=== PATIENT | male | born 1955 | race Two or more races ===

== ENCOUNTER 2024-01-23 22:03 | Inpatient (IN) | payer MEDICARE, OTHER ==
[~2024-01-23] VITALS: Ht 162.6 cm; Wt 79.4 kg
[2024-01-23 23:03] LABS: Basophils # (auto) 0.1 10 ^3/uL (0-0.2); Basophils % (auto) 1.4 % (0.0-2.0); Eosinophils # (auto) 0.3 10 ^3/uL (0-0.8); Eosinophils % (auto) 3.5 % (0.0-7.0); Hematocrit 42.6 % (41.0-53.0); Hemoglobin 14.1 g/dL (13.5-17.5); Lymphocytes # (auto) 2.8 10 ^3/uL (0.4-5.4); Lymphocytes % (auto) 30.1 % (10.0-50.0); Mean Corpuscular Hemoglobin 30.2 pg (28.0-32.0); Mean Corpuscular Hgb Conc. 33.2 g/dL (32.0-36.0); Mean Corpuscular Volume 90.9 fL (80.0-100.0); Monocytes # (auto) 0.7 10 ^3/uL (0-1.3); Monocytes % (auto) 7.5 % (0.0-12.0); Neutrophils # (auto) 5.3 10 ^3/uL (1.6-8.6); Neutrophils % (auto) 57.5 % (37.0-80.0); Red Blood Cells 4.68 10^6/uL (4.5-5.90); Red Cell Distribution Width 13.7 % (11.8-14.3); White Blood Cell 9.3 10^3/uL (4.4-10.8)
[2024-01-23] MEDS: methylPREDNISolone SOD SUCC 125 MG/2 ML VL IV ONE (23:15)
[2024-01-23] MEDS: IPRATROPIUM BROM 0.5 MG/2.5ML INH SOL NEB ONE (23:18)
[2024-01-23] MEDS: ALBUTEROL SULF 2.5 MG/0.5ML(0.5%) NEB SOLN NEB ONE (23:18)
[2024-01-23 23:19] LABS: Alanine Aminotransferase 17 U/L (7-40); Albumin 4.4 g/dL (3.2-4.8); Alkaline Phosphatase 88 U/L (46-116); Anion Gap 7 (5-15); Aspartate Aminotransferase 26 U/L (13-40); BUN/Creatinine Ratio 8.9 (10.0-20.0); Bilirubin, Total 0.3 mg/dL (0.2-1.0); Blood Urea Nitrogen 8 mg/dL (9-23); Calcium 9.8 mg/dL (8.7-10.4); Carbon Dioxide 30 mmol/L (20-30); Chloride 106 mmol/L (98-107); Glucose 110 mg/dL (74-106); Potassium 4.3 mmol/L (3.5-5.1); Sodium 143 mmol/L (136-145); Total Protein 6.9 g/dL (5.7-8.2)
[2024-01-24] VITALS (17 sets, daily range): BP systolic 114–152; BP diastolic 70–87; PULSE 76–110; RESP 16–18; TEMP 97.6–98.6; O2SAT 92–99
[2024-01-24 00:06] LABS: Base Excess 1.6 mmol/L (-2.0-2.0)
[2024-01-24] MEDS: IPRATROPIUM BROM 0.5 MG/2.5ML INH SOL NEB ONE (00:14)
[2024-01-24] MEDS: ALBUTEROL SULF 2.5 MG/0.5ML(0.5%) NEB SOLN NEB ONE (00:14)
[2024-01-24] MEDS ORDERED: ONDANSETRON HCL 4 MG/2 ML VIAL IV PRN (03:15)
[2024-01-24] MEDS ORDERED: NITROGLYCERIN 0.4 MG SL TAB SL PRN ×2 (03:15→04:15)
[2024-01-24] MEDS ORDERED: MORPHINE SULFATE INJ 2 MG/ml SYRG IV PRN ×2 (03:15→04:15)
[2024-01-24] MEDS ORDERED: TEMAZEPAM 15 MG CAP PO PRN (03:15)
[2024-01-24] MEDS ORDERED: ACETAMINOPHEN 325 MG TAB PO PRN (03:15)
[2024-01-24] MEDS ORDERED: IPRATROPIUM BROM 0.5 MG/2.5ML INH SOL NEB PRN (03:15)
[2024-01-24] MEDS: methylPREDNISolone SOD SUCC 40 MG/ML VL IV SCH (12:28)
[2024-01-24] MEDS ORDERED: NITR0.4S29 SL (12:53)
[2024-01-24] MEDS ORDERED: AZIT-43 PO (12:53)
[2024-01-24] MEDS ORDERED: MELA3TAB27 PO (12:53)
[2024-01-24] MEDS ORDERED: HYDR-4798 PO (12:53)
[2024-01-24] MEDS ORDERED: ATOR40TA52 PO (12:53)
[2024-01-24] MEDS ORDERED: CHOL20007 PO (12:53)
[2024-01-24] MEDS ORDERED: PANT40T PO (12:53)
[2024-01-24] MEDS ORDERED: AMIT-118 PO (12:53)
[2024-01-24] MEDS ORDERED: CARV6.2551 PO (12:53)
[2024-01-24] MEDS: ALBUTEROL SULF 2.5 MG/0.5ML(0.5%) NEB SOLN NEB PRN (15:52)
[2024-01-24] MEDS: AZITHROMYCIN 250 MG TAB PO ONE (17:10)
[2024-01-24] MEDS: PANTOPRAZOLE 40 MG TAB PO ONE (17:10)
[2024-01-24] MEDS: cefTRIAXone 1GM/50ML D5W 50 ML IV ONE (17:28)
[2024-01-24] MEDS: HYDROcodone-ACET 10/325MG TAB PO PRN (17:41)
[2024-01-24] MEDS: IPRATROPIUM BROM 0.5 MG/2.5ML INH SOL NEB SCH (19:09)
[2024-01-24] MEDS: ALBUTEROL SULF 2.5 MG/0.5ML(0.5%) NEB SOLN NEB SCH (19:10)
[2024-01-24] MEDS: AMITRIPTYLINE HCL 25 MG TAB PO SCH (22:09)
[2024-01-24] MEDS: ATORVASTATIN 20 MG TAB PO SCH (22:10)
[2024-01-25] VITALS (15 sets, daily range): BP systolic 101–146; BP diastolic 68–81; PULSE 84–109; RESP 14–19; TEMP 97.7–98.3; O2SAT 91–99
[2024-01-25] MEDS: HYDROcodone-ACET 10/325MG TAB PO PRN (01:34)
[2024-01-25] MEDS: PANTOPRAZOLE 40 MG TAB PO SCH (05:51)
[2024-01-25 06:23] LABS: Urine Bacteria None Seen /hpf (None Seen)
[2024-01-25 06:49] LABS: Urine Blood Negative /uL (Negative); Urine Clarity Clear (Clear); Urine Color Yellow (Yellow); Urine Protein, UAD Negative (Negative); Urine Specific Gravity 1.027 (1.001-1.035); Urine Urobilinogen Normal (Negative); Urine WBC 1 /hpf (0 - 3); Urine pH 7.5 (5.0-9.0)
[2024-01-25 06:57] LABS: Anion Gap 6 (5-15); Carbon Dioxide 24 mmol/L (20-30); Chloride 108 mmol/L (98-107); Potassium 4.1 mmol/L (3.5-5.1); Sodium 138 mmol/L (136-145)
[2024-01-25 06:58] LABS: Calcium 9.6 mg/dL (8.5-10.1)
[2024-01-25 07:03] LABS: BUN/Creatinine Ratio 19.5 (10.0-20.0); Blood Urea Nitrogen 15 mg/dL (9-23); Glucose 154 mg/dL (74-106)
[2024-01-25] MEDS: cefTRIAXone 1GM/50ML D5W 50 ML IV SCH (08:58)
[2024-01-25] MEDS: AZITHROMYCIN 250 MG TAB PO SCH (08:59)
[2024-01-26 00:29] VITALS: BP 114/69; PULSE 84; RESP 18; TEMP 98.1; O2SAT 94
[2024-01-26 04:43] VITALS: BP 116/56; PULSE 73; RESP 16; TEMP 97.9; O2SAT 94
[2024-01-26 08:33] VITALS: BP 95/47; PULSE 83; RESP 16; TEMP 98.4; O2SAT 95
[2024-01-26] MEDS ORDERED: AZIT500T66 PO (10:10)
[2024-01-26] MEDS ORDERED: PRED20TA2 PO (10:11)
[2024-01-26 12:44] VITALS: BP 114/74; PULSE 71; RESP 18; TEMP 98.1; O2SAT 91
[2024-01-26 13:38] VITALS: TEMP 36.7
== END 2024-01-26 16:20 | disposition home or self-care (01) | DRG 177 ==
LOC: ER 22:03 → EDBD 22:03 → TELE 01-24 04:02 → TELE-WESTW 01-24 08:57 → WEST WING 01-25 00:41
PROVIDERS: ADMIT Nurse Practitioner; ATTEND Family Medicine
DX: J15.69 Pneumonia due to other Gram-negative bacteria (principal); J96.20 Acute and chronic respiratory failure, unspecified whether with hypoxia or hypercapnia; J44.1 Chronic obstructive pulmonary disease with (acute) exacerbation; J44.0 Chronic obstructive pulmonary disease with (acute) lower respiratory infection; E66.01 Morbid (severe) obesity due to excess calories; I10 Essential (primary) hypertension; J15.9 Unspecified bacterial pneumonia; I25.10 Atherosclerotic heart disease of native coronary artery without angina pectoris; E78.00 Pure hypercholesterolemia, unspecified; Z68.30 Body mass index [BMI] 30.0-30.9, adult; Z79.899 Other long term (current) drug therapy
CPT/HCPCS: 36415; 36600; 80048; 80053; 81001; 82805; 83880; 84484; 85025; 93005; 94640; 96374; G0378